=== PATIENT | female | born 1935 ===

== ENCOUNTER 2018-12-29 13:24 | Outpatient (CLI) | payer OTHER | END 2018-12-29 13:37 | disposition home or self-care (01) | LOC: RAD 13:24 | DX: M54.5 Low back pain (principal); M54.16 Radiculopathy, lumbar region; M48.07 Spinal stenosis, lumbosacral region ==

== ENCOUNTER 2022-10-01 11:23 | Outpatient (CLI) | payer OTHER | END 2022-10-01 11:29 | disposition home or self-care (01) | LOC: RAD 11:23 | PROVIDERS: ATTEND Physical Medicine & Rehabilitation | DX: M54.59 Other low back pain (principal) ==

== ENCOUNTER 2023-05-03 09:57 | Outpatient (CLI) | payer OTHER | END 2023-05-03 14:47 | disposition home or self-care (01) | LOC: WOUND MED 09:57 | PROVIDERS: ATTEND Specialist | DX: E11.621 Type 2 diabetes mellitus with foot ulcer (principal); L97.322 Non-pressure chronic ulcer of left ankle with fat layer exposed; Z79.4 Long term (current) use of insulin | CPT/HCPCS: 11042; A4927; A6219; A6223; A6251; G0463 ==

== ENCOUNTER 2023-05-07 07:47 | Outpatient (CLI) | payer OTHER | END 2023-05-07 09:01 | disposition home or self-care (01) | LOC: WOUND MED 07:47 | PROVIDERS: ATTEND Specialist | DX: L97.322 Non-pressure chronic ulcer of left ankle with fat layer exposed (principal) | CPT/HCPCS: 97602; A4927; A6219; A6223; A6251; G0463 ==

== ENCOUNTER 2023-05-10 08:12 | Outpatient (CLI) | payer OTHER | END 2023-05-10 10:00 | disposition home or self-care (01) | LOC: WOUND MED 08:12 | PROVIDERS: ATTEND Specialist | DX: E11.621 Type 2 diabetes mellitus with foot ulcer (principal); L97.322 Non-pressure chronic ulcer of left ankle with fat layer exposed; Z79.4 Long term (current) use of insulin | CPT/HCPCS: 11042; A4927; A6219; A6223; G0463 ==

== ENCOUNTER 2024-02-22 17:16 | Inpatient (IN) | payer OTHER ==
[~2024-02-22] VITALS: Ht 162.6 cm; Wt 76.2 kg
[2024-02-22] MEDS ORDERED: GLIMEPIRIDE2 M1 (17:38)
--- NOTE | 2024-02-22 17:38 | NUR ---
PTE ALERTA Y ORIENTADA X3 LLEGA A ER EN AMBULANCIA EN COMPANIA DE FAMILIAR. SE LANG S/V, PTE REFIERE VENIR YA QUE PRESENTA DEBILIDAD Y FIEBRE. SE UBICA EN GLADYS AREA DE OBSERVACION.
[2024-02-22] MEDS ORDERED: IPRATROPIUM/ALBUTEROL SULFATE 3 ML AMPUL.NEB IH SCH (18:00)
[2024-02-22] MEDS ORDERED: AZITHROMYCIN 500 MG VIAL IV ONE (18:00)
[2024-02-22] MEDS ORDERED: ACETAMINOPHEN 500 MG GEL..CAP PO ONE (18:00)
[2024-02-22] MEDS ORDERED: GUAIFENESIN/DEXTROMETHORPHAN 10ML BLIST.PACK PO ONE (18:00)
--- NOTE | 2024-02-22 18:41 | NUR ---
SE REALIZA LABORATORIOS Y SE ADMINISTRA MEDICAMENTOS ADAN ORDEN MEDICA BAJO MEDIDAS ASEPTICAS. SE ORIENTA A PTE Y FAMILIAR QUIEN REFIERE ENTENDER Y ACEPTAR
[2024-02-22 18:44] LABS: HEMATOCRIT 41.3 % (36.0-45.00); HEMOGLOBIN 13.9 g/dL (12.0-15.00); MEAN CELL VOLUME 89.6 fL (80.00-100.00); MEAN CORPUSCULAR HEMOGLOBIN 30.2 pg (27.00-32.0); MEAN CORPUSCULAR HGB CONC 33.7 g/dl (32.0-36.0); PLATELET COUNT 184 K/uL (150-450); RED BLOOD COUNT 4.61 M/uL (4.00-6.00); RED CELL DISTRIBUTION WIDTH 13.3 % (11.5-14.5)
[2024-02-22 19:04] LABS: ALBUMIN 3.5 gm/dL (3.4-5.0); BILIRUBIN TOTAL 0.48 mg/dL (0.3-1.2); CALCIUM 8.9 mg/dL (8.5-10.1); CREATININE SERUM 1.03 mg/dL (0.55-1.02); GFR 50.69; GLOBULINA 3.8 G/DL (2.4-3.5); POTASSIUM 4.11 mEq/L (3.5-5.1); TOTAL PROTEIN 7.3 gm/dL (6.4-8.2)
[2024-02-22 19:09] LABS: ABG PH 7.476 (7.35-7.45); ABG PO2 57.8 mmHg (80-100); ABG pCO2 33.3 mmHg (35-45); BASE EXCESS 1.2 mmol/l; BICARBONATE 91.8 mmol/l (23-25); SaO2 91.8 %; Tco2 1.2 mmol/l; allen test SATISFACTORY; puncture site RADIAL RIGHT
[2024-02-22 19:10] LABS: o2 21 %
[2024-02-22 19:41] LABS: URINE APPEARANCE Cloudy; URINE BILIRRUBIN Negative (NEGATIVE); URINE BLOOD Moderate; URINE COLOR Yellow; URINE GLUCOSE Negative (NEGATIVE); URINE KETONE 15 (NEGATIVE); URINE LEUKOCYTE Moderate; URINE NITRATE Negative; URINE PROTEIN 30 (NEGATIVE); URINE UROBILINOGEN 0.2 E.U./dl
[2024-02-22 19:45] LABS: URINE BACTERIA 3153.6 uL (0.0-1933); URINE EPITHELIAL CELLS 89.8 uL (0.0-38.8); URINE RBC 3.6 uL (0.0-20.8); URINE WBC 524.2 uL (0.0-23.2)
[2024-02-22] MEDS ORDERED: 0.9 % SODIUM CHLORIDE 500 ML IV ONE (21:00)
[2024-02-22] MEDS ORDERED: CEFTRIAXONE SODIUM 2,000 MG VIAL IV ONE (21:00)
[2024-02-22] MEDS ORDERED: OSELTAMIVIR PHOSPHATE 75 MG CAPSULE PO ONE (21:00)
[2024-02-22] MEDS ORDERED: LEVALBUTEROL HCL 1.25 MG/3 ML SOLUTION IH SCH (21:43)
[2024-02-22] MEDS ORDERED: IPRATROPIUM BROMIDE 0.5 MG/2.5 ML AMPUL.NEB IH SCH (21:43)
[2024-02-22] MEDS ORDERED: ACETAMINOPHEN 500 MG GEL..CAP PO PRN (21:45)
[2024-02-22] MEDS ORDERED: 0.9 % SODIUM CHLORIDE 1,000 ML IV SCH (21:45)
[2024-02-22] MEDS ORDERED: ATORVASTATIN CALCIUM 40 MG TABLET PO SCH (21:47)
[2024-02-22] MEDS ORDERED: GUAIFEN/DEXTROMETHORPHAN/PE 10 ML BLIST.PACK PO SCH (21:53)
[2024-02-22] MEDS ORDERED: ENOXAPARIN SODIUM 80 MG/0.8 ML SYRINGE SUBCUTANEO SCH (21:55)
[2024-02-22] MEDS ORDERED: METHYLPREDNISOLONE SOD SUCC 125 MG VIAL IV ONE (22:00)
[2024-02-22] MEDS ORDERED: DEXTROSE 50 % IN WATER 0.5 G/ML DISP.SYRIN IV PRN (22:00)
[2024-02-22] MEDS ORDERED: ASPIRIN 325 MG TABLET PO ONE (22:00)
[2024-02-22] MEDS ORDERED: INSULIN LISPRO 1,000 UNIT/10 ML UNITS SUBCUTANEO PRN (22:00)
[2024-02-23] VITALS (10 sets, daily range): BP systolic 104–149; BP diastolic 49–76; O2SAT 97–100
[2024-02-23 01:40] LABS: INR 1.1; PROTHROMBIN TIME 11.9 SECONDS (9.0-11.5)
[2024-02-23 01:43] LABS: D DIMER 1.82 MG/L; PARTIAL THROMBOPLASTIN TIME 28.5 SECONDS (22.0-34.0)
[2024-02-23] MEDS ORDERED: TICAGRELOR 90 MG TABLET PO STA (05:45)
[2024-02-23] MEDS ORDERED: NITROGLYCERIN IN 5 % DEXTROSE 50 MG/250 ML BOTTLE IV STA (05:50)
[2024-02-23] MEDS ORDERED: BUDESONIDE 0.5 MG/2 ML AMPUL.NEB IH SCH (05:51)
[2024-02-23 08:41] LABS: CHOL HDL RATIO 1.9 (0-5.0); TSH 0.819 uIU/mL (0.358-3.74)
[2024-02-23] MEDS ORDERED: FAMOTIDINE/PF 20 MG in 0.9 % SODIUM CHLORIDE 8 ML IV PUSH SCH (09:00)
[2024-02-23] MEDS ORDERED: levoFLOXacin IN DEXTROSE 5 % 150 ML IV SCH (09:00)
[2024-02-23] MEDS ORDERED: ASPIRIN 81 MG TAB.CHEW PO SCH (09:00)
[2024-02-23] MEDS ORDERED: OSELTAMIVIR PHOSPHATE 75 MG CAPSULE PO SCH (09:00)
[2024-02-23] MEDS ORDERED: TICAGRELOR 90 MG TABLET PO SCH (17:00)
[2024-02-23] MEDS ORDERED: ENOXAPARIN SODIUM 80 MG/0.8 ML SYRINGE SUBCUTANEO SCH (21:00)
[2024-02-24] VITALS (23 sets, daily range): BP systolic 99–158; BP diastolic 44–78; O2SAT 95–100
[2024-02-24] MEDS ORDERED: AMIODARONE IN DEXTROSE,ISO-OSM 360 MG/200 ML IV.SOLN IV SCH (06:00)
[2024-02-24] MEDS ORDERED: OSELTAMIVIR PHOSPHATE 75 MG CAPSULE PO SCH (09:00)
[2024-02-24] MEDS ORDERED: OSELTAMIVIR PHOSPHATE 30MG CAP PO SCH (17:00)
[2024-02-25] VITALS: BP 118/78; O2SAT 96
[2024-02-25 07:57] VITALS: BP 139/74; O2SAT 97
[2024-02-25] MEDS ORDERED: AMIODARONE HCL 200 MG TABLET PO SCH (09:00)
[2024-02-25] MEDS ORDERED: ISOSORBIDE MONONITRATE 30 MG TABLET PO SCH (09:00)
[2024-02-25 10:30] VITALS: O2SAT 97
[2024-02-25 12:42] LABS: ABG PO2 78.3 mmHg (80-100); ABG pCO2 33.8 mmHg (35-45); BASE EXCESS 0.4 mmol/l; BICARBONATE 23.5 mmol/l (23-25); SaO2 96.2 %; Tco2 24.5 mmol/l
[2024-02-25 12:43] LABS: allen test SATISFACTORY; o2 21 %; puncture site RADIAL RIGHT
[2024-02-25 18:39] VITALS: BP 129/75; O2SAT 96
[2024-02-26] VITALS: BP 147/66; O2SAT 96
[2024-02-26 08:53] VITALS: BP 147/75; O2SAT 97
[2024-02-26] MEDS ORDERED: levoFLOXacin IN DEXTROSE 5 % 150 ML IV SCH (09:00)
[2024-02-26 11:10] LABS: HEMATOCRIT 36.7 % (36.0-45.00); HEMOGLOBIN 12.2 g/dL (12.0-15.00); MEAN CELL VOLUME 89.9 fL (80.00-100.00); MEAN CORPUSCULAR HGB CONC 33.3 g/dl (32.0-36.0); PLATELET COUNT 175 K/uL (150-450); RED BLOOD COUNT 4.08 M/uL (4.00-6.00); RED CELL DISTRIBUTION WIDTH 13.1 % (11.5-14.5)
[2024-02-26 11:36] LABS: ALBUMIN 2.7 gm/dL (3.4-5.0); BILIRUBIN TOTAL 1.37 mg/dL (0.3-1.2); CALCIUM 8.3 mg/dL (8.5-10.1); CREATININE SERUM 0.73 mg/dL (0.55-1.02); GFR 75.41; GLOBULINA 2.9 G/DL (2.4-3.5); POTASSIUM 3.55 mEq/L (3.5-5.1); TOTAL PROTEIN 5.6 gm/dL (6.4-8.2)
== END 2024-02-26 13:38 | disposition home or self-care (01) | DRG 871 ==
LOC: ER 17:16 → SURH 22:38 → ICU-2 02-23 00:10 → SEC-K 02-24 10:11 → SURH 02-24 19:19
PROVIDERS: General Practice; Nurse Practitioner Family; Student in an Organized Health Care Education/Training Program; ADMIT Internal Medicine; ATTEND Internal Medicine
PROC: BB24ZZZ Computerized Tomography (CT Scan) of Bilateral Lungs (ICD-10-PCS; 2024-02-22)
PROC: 8E0ZXY6 Isolation (ICD-10-PCS; principal; 2024-02-23)
PROC: BB24YZZ Computerized Tomography (CT Scan) of Bilateral Lungs using Other Contrast (ICD-10-PCS; 2024-02-23)
PROC: B246ZZZ Ultrasonography of Right and Left Heart (ICD-10-PCS; 2024-02-23)
PROC: 3E0F7GC Introduction of Other Therapeutic Substance into Respiratory Tract, Via Natural or Artificial Opening (ICD-10-PCS; 2024-02-23)
PROC: 4A12X4Z Monitoring of Cardiac Electrical Activity, External Approach (ICD-10-PCS; 2024-02-25)
DX: A41.89 Other specified sepsis (principal); I21.4 Non-ST elevation (NSTEMI) myocardial infarction; J10.08 Influenza due to other identified influenza virus with other specified pneumonia; N39.0 Urinary tract infection, site not specified; I24.89 Other forms of acute ischemic heart disease; I10 Essential (primary) hypertension; E11.65 Type 2 diabetes mellitus with hyperglycemia; R09.02 Hypoxemia; Z79.84 Long term (current) use of oral hypoglycemic drugs